=== PATIENT | female | born 1995 | race Caucasian/White ===

== ENCOUNTER → 2017-01-22 | Outpatient (CLI) | payer OTHER | END | disposition disaster alternative care site (69) | LOC: GRAD 12:37 | DX: S83.241A Other tear of medial meniscus, current injury, right knee, initial encounter (principal); S83.211A Bucket-handle tear of medial meniscus, current injury, right knee, initial encounter; S82.001A Unspecified fracture of right patella, initial encounter for closed fracture; M25.461 Effusion, right knee; X58.XXXA Exposure to other specified factors, initial encounter ==